=== PATIENT | male | born 1970 | race Caucasian/White ===

== ENCOUNTER 2024-02-12 10:51 | Day surgery (SDC) | payer BC ==
[2024-02-12] MEDS ORDERED: Lactated Ringers 1,000 ML IV ONE ×2 (10:58→14:24)
[2024-02-12] MEDS ORDERED: CEFAZOLIN 2 GM-D5W BAG** 2 GM/50 ML ML IV ONE (10:58)
[2024-02-12] MEDS: Lactated Ringers 1,000 ML IV SCH (11:00)
[2024-02-12] MEDS: CEFAZOLIN 2 GM-D5W BAG** 2 GM/50 ML ML IV SCH (11:00)
[2024-02-12 11:18] LABS: Hematocrit 45.5 % (42-50); Hemoglobin 15.3 g/dL (12.5-18.0); Mean Cell Volume 83.5 fL (78-100); Mean Corpuscular Hemoglobin 28.1 pg (26-32); Mean Corpuscular Hgb Concent. 33.6 g/dL (32-36); Mean Platelet Volume 10.6 fL (7.5-11.0); Platelet Count 193 x10^3/uL (150-450); Red Blood Count 5.45 x10^6/uL (4.1-5.6); White Blood Count 5.4 x10^3/uL (4.0-10.5)
[2024-02-12 11:31] VITALS: RESP 18
[2024-02-12 11:31] LABS: ALBUMIN 4.7 g/dL (3.5-5.0); ANION GAP 12.3 MEQ/L (5-15); BILIRUBIN,TOTAL 0.6 mg/dL (0.2-1.3); Calcium 9.2 mg/dL (8.4-10.2); Total Protein 7.5 g/dL (6.3-8.2)
[2024-02-12 11:36] LABS: INR 1.03 (0.8-3.0); PROTIME 11.2 SECONDS (9.4-12.5); PTT 28.9 SECONDS (25.1-36.5)
[2024-02-12] MEDS ORDERED: Xylocaine 1% Vial 30 ML PF IJ ONE (11:46)
[2024-02-12] MEDS ORDERED: Marcaine Mpf 0.5% Vial 30 Ml ONE (11:46)
[2024-02-12] MEDS ORDERED: DIPRIVAN 200 MG/20 ML IV ONE ×2 (12:12→15:14)
[2024-02-12] MEDS ORDERED: ROCURONIUM BROMIDE IV ONE (12:14)
[2024-02-12] MEDS ORDERED: Zofran 4 MG/2 ML VIAL ONE (12:14)
[2024-02-12] MEDS ORDERED: SUBLIMAZE 100 MCG/2 ML ONE (13:57)
[2024-02-12] MEDS ORDERED: Ephedrine Sulfate 50 MG/ML ONE (14:44)
--- NOTE | 2024-02-12 15:04 | XRAY ---
Indication: Right second toe hammertoe correction. Intraoperative fluoroscopy provided for 47 seconds. 24 digital spot images submitted for interpretation demonstrates fusion 2nd toe and 2nd metatarsal head dustin osteotomy. Correlate with intraoperative findings/report.
[2024-02-12] MEDS ORDERED: BRIDION 200MG/2ML IV ONE (15:14)
--- NOTE | 2024-02-12 16:24 | XRAY ---
Indication: Left second toe hammertoe correction. Intraoperative fluoroscopy provided for 23 seconds. 11 digital spot images submitted for interpretation demonstrates fusion 2nd toe and 2nd metatarsal head dustin osteotomy. Correlate with intraoperative findings/report.
[2024-02-12] MEDS ORDERED: Hydromorphone 1 mg/ml Injection ONE (16:31)
[2024-02-12 16:58] VITALS: TEMP 97.7; O2SAT 98
[2024-02-12 17:10] VITALS: BP 127/82; PULSE 71
--- NOTE | 2024-02-13 09:54 | OP ---
SURGERY DATE/TIME: 02/12/2024 1391 PREOPERATIVE DIAGNOSES: 1) Hammer toe right foot. 2) Hammer toe left foot. 3) Metatarsal deformity right foot. 4) Metatarsal deformity left foot. 5) Diabetes mellitus. 6) History of diabetic foot ulcer. 7) Diabetic peripheral neuropathy. POSTOPERATIVE DIAGNOSES: 1) Hammer toe right foot. 2) Hammer toe left foot. 3) Metatarsal deformity right foot. 4) Metatarsal deformity left foot. 5) Diabetes mellitus. 6) History of diabetic foot ulcer. 7) Diabetic peripheral neuropathy. PROCEDURES: 1) Hammertoe correction. 2) Bilateral metatarsal Rosanna osteotomy bilateral second metatarsal. 3) Left flexor tenotomy 3 and 4. SURGEON: Gary Torres DPM. [employer]IDENT [employer] [place]: None. ANESTHESIA: General. HEMOSTASIS: Tourniquet to each ankle with 31 total tourniquet minutes on the right and for the left 38 total tourniquet minutes. QUANTITATIVE BLOOD LOSS: Approximately 5 cc. MATERIALS: Two - 2.0 x 14 headed partially threaded screws for the Rosanna osteotomy to the second metatarsal bilateral. Hammertoe correction a 2.5 x 40 VPC for both the second digits, 4-0 Monocryl, 2-0 Vicryl and 4-0 Nylon. INJECTABLES: 20 cc of 1:1 mixture of 1% lidocaine plain and 0.5% bupivacaine plain injected in a metatarsal block-type fashion to the second metatarsal bilaterally. INDICATIONS FOR PROCEDURE: Jair is a very pleasant 53-year-old male very well known to my service for significant contractures of digits to the bilateral lower extremity. The patient on the left side had significant contracture which in the past he has had a wound that has resolved and we have been managing from a conservative standpoint at this time. At this time, the patient has been dealing with this issue for over three years and wishes to proceed with surgical correction in order to allow for rest time being concerned over break down of these wounds. From that standpoint, the patient wishes to proceed with bilateral lower extremity primary interest to second digit the highest point bilaterally with some significant concerns for breakdown this is why we decided to approach the digits at this time. The patient understands all risks, complications and benefits of surgical intervention at this time including but not limited to infection, hematoma, seroma, possibility of delayed wound healing, nonwound healing and possible need for further surgical intervention at a later date. No guarantees were provided as to the outcome of surgical intervention. Plenty of time was allowed for the patient to ask questions which were answered to their apparent satisfaction. It is with that we decided to proceed. DESCRIPTION OF PROCEDURE AND FINDINGS: The patient was brought into the OR and placed on the OR table in the supine position. At this time general anesthesia was administered until the patient was adequately sedated. At this time, the bilateral lower extremity was prepped and draped in the typical sterile fashion. A well-padded tourniquet was applied to the right and left ankles. At this time, attention was directed to the right lower extremity where a 10 cc block consisting of a 1:1 mixture of 1% lidocaine plain and 0.5% bupivacaine plain is injected in a metatarsal block-type fashion. Following this, a linear incision was carried down to the level of the extensor digitorum longus of the second digit. A Z-lengthening tenotomy was performed and these were reflected out of the wound utilizing a curved mini-hemostat. Capsular dissection took place at this time providing J-strokes on the medial and lateral aspect of the joint this gained access to the capsule and metatarsal head. At this time utilizing an 18 mm sagittal saw, a Rosanna osteotomy was performed pushing the metatarsal head back until when loaded the proximal phalanx was rectus with the plane of the longitudinal axis of the metatarsal and set within reasonable distance from the ground. Following this, a 0.9 K-wire was then utilized to hold the position the metatarsal head and then a 14 mm 2.0 headed partially threaded screw was introduced. The K-wire was taken out and the area was resected utilizing a rongeur. Attention was then directed to the second digit. Proximal interphalangeal joint where resection of the joint took place utilizing an 18 mm sagittal saw. Once this was done a K-wire was retrograded out of the tip of the middle phalanx and distal phalanx and then anterograded down the base of the proximal phalanx following the longitudinal cortex. A 2.5 x 40 VPC screw was then introduced gaining excellent apposition of the toe in a rectus position this was assessed in a weight bearing position and deemed to be adequate. From this standpoint, the extensor tendon was repaired utilizing 4-0 Monocryl in a simple interrupted-type fashion. Following this, 4-0 Monocryl and 4-0 Nylon were utilized to coapt the skin edges subcutaneously in a simple interrupted buried-type fashion and a horizontal mattress-type fashion for the skin. Tourniquets were then let down total of 31 total tourniquet minutes. Following this, the tourniquet was inflated to the left lower extremity where the same procedure to a T that was performed to the right lower extremity. Following this, assessment of the digit was carried out. There was some medial deviation of the digit which a capsulorrhaphy was performed laterally and a release of the capsule was performed medially which showed some indications of improvement. However, the decision was made to proceed with flexor tenotomies to digits 3 and 4, which were encroaching on the second digit and causing crowding of the digit secondary to the patients bunion. This was performed showing some improvement. The semi-rigid contractures did show some signs of reduced curvature underneath the toes. Following this, a dressing consisting of Betadine, Adaptic, 4x4, Kerlix, ABD and TAMIKO were applied to the bilateral lower extremity. For the flexor tenotomies an upward sling was performed and for the hammer toes a downward sling was the performed. Following this, the patient was then reversed from anesthesia and returned to the postoperative anesthesia care unit with vital signs stable and vascular status intact. The patient handled the anesthesia as well as the procedure without significant complication. Postoperative orders as indicated in the patient's discharge chart.
--- NOTE | 2024-02-16 13:10 | XRAY ---
23 seconds of fluoroscopy was used in surgery for a left second toe hammertoe correction.
--- NOTE | 2024-02-16 13:10 | XRAY ---
47 seconds of fluoroscopy was used in surgery for a right second toe hammertoe correction.
== END 2024-02-12 17:18 | disposition home or self-care (01) ==
LOC: SDC 10:51
PROVIDERS: ATTEND Podiatrist Foot & Ankle Surgery
DX: M20.42 Other hammer toe(s) (acquired), left foot (principal); M20.41 Other hammer toe(s) (acquired), right foot; M21.962 Unspecified acquired deformity of left lower leg; M21.961 Unspecified acquired deformity of right lower leg; E11.42 Type 2 diabetes mellitus with diabetic polyneuropathy; Z86.31 Personal history of diabetic foot ulcer
CPT/HCPCS: 28232; 28285; 28308; 36415; 73630; 76000; 80053; 82947; 85027; 85610; 85730; J0690; J1170; J2001; J2405; J2704; J3010